=== PATIENT | female | born 1975 ===

== ENCOUNTER 2016-05-31 08:44 | Day surgery (SDC) | payer MEDICAID ==
[2016-05-31 08:44] VITALS: BMI 32.4
[2016-05-31] MEDS ORDERED: Sodium Chloride 0.9% 1,000 ML IV ONE (09:30)
[2016-05-31] MEDS ORDERED: Sodium Chloride 0.9% 1,000 ML ONE (09:38)
[2016-05-31 10:28] LABS: BASO % 0.5 % (0.0-2.0); EOS # 0.1 K/uL (0.0-0.7); HEMATOCRIT 32.4 % (34.0-47.0); LYMPH # 2.2 K/uL (1.0-4.3); LYMPH % 25.4 % (20.0-40.0); MEAN CELL VOLUME 68.8 fL (81.0-99.0); MEAN CORPUSCULAR HEMOGLOBIN 21.4 pg (27.0-31.0); MEAN CORPUSCULAR HGB CONC 31.1 g/dL (33.0-37.0); MEAN PLATELET VOLUME 7.2 fL (7.2-11.7); MONO # 0.5 K/uL (0.0-0.8); RED CELL DISTRIBUTION WIDTH 18.4 % (11.5-14.5); WHITE BLOOD COUNT 8.5 K/uL (4.8-10.8)
[2016-05-31 10:37] LABS: RBC URINE 21 /hpf (0-3); URINE BILIRUBIN NEGATIVE (NEGATIVE); URINE BLOOD 2+ (NEGATIVE); URINE COLOR Yellow (YELLOW); URINE GLUCOSE (UA) NORMAL (Normal); URINE KETONE NEGATIVE (NEGATIVE); URINE LEUKOCYTE ESTERASE NEG Leu/uL (Negative); URINE PROTEIN NEGATIVE (NEGATIVE); URINE UROBILINOGEN NORMAL mg/dL (0.2-1.0); WBC URINE 2 /hpf (0-5)
[2016-05-31 10:38] LABS: CHLORIDE 103 mmol/L (98-107); SODIUM 140 mmol/L (132-148)
[2016-05-31 10:40] LABS: GFR AFRICAN-AMERICAN > 60
[2016-05-31 10:41] LABS: ALB/GLOB RATIO 0.9 (1.0-2.1); ALKALINE PHOSPHATASE 114 U/L (38-126); ALT/SGPT 23 U/L (9-52); AST/SGOT 24 U/L (14-36); BILIRUBIN,TOTAL 0.3 mg/dL (0.2-1.3); BLOOD UREA NITROGEN 9 mg/dL (7-17); CARBON DIOXIDE 25 mmol/L (22-30); GLUCOSE,RANDOM 101 mg/dL (65-105); TOTAL PROTEIN 8.7 g/dL (6.3-8.3)
--- NOTE | 2016-05-31 10:48 | C.PDOC ---
History Of Present Illness 40-year-old female, is sent to the emergency department for evaluation of lower abdominal pain. Patient was recently diagnosed with endometriosis, and has been experiencing intermittent heavy vaginal bleeding w/ associated lower abdominal pain for the past few months. Patient denies any current pain. No nausea/ vomiting, diarrhea, fevers, chills, shortness of breath, chest pain, or any other associated symptoms. No other complaints at this time. Time Seen by Provider: 05/31/16 09:18 Chief Complaint (Nursing): Female Genitourinary History Per: Patient History/Exam Limitations: no limitations Onset/Duration Of Symptoms: Days Current Symptoms Are (Timing): Still Present Severity: Moderate Past Medical History Reviewed: Historical Data, Nursing Documentation, Vital Signs Vital Signs: Last Vital Signs Temp 96.8 F L 05/31/16 15:00 Pulse 90 05/31/16 15:00 Resp 18 05/31/16 15:00 BP 105/63 05/31/16 15:00 Pulse Ox 100 05/31/16 18:28 - Medical History PMH: Hypothyroidism - [facility] Procedures BILAT TUBAL DESTRUCT NEC (09/14/12) LOW CERVICAL (09/14/12) Family History: States: Unknown Family Hx - Social History Hx Alcohol Use: No Hx Substance Use: No Review Of Systems Except As Marked, All Systems Reviewed And Found Negative. Constitutional: Negative for: Fever, Chills Cardiovascular: Negative for: Chest Pain, Palpitations Respiratory: Negative for: Shortness of Breath Gastrointestinal: Positive for: Abdominal Pain. Negative for: Nausea, Vomiting Genitourinary: Positive for: Vaginal Bleeding. Negative for: Dysuria, Frequency , Vaginal Discharge Musculoskeletal: Negative for: Back Pain Skin: Negative for: Rash Physical Exam - Physical Exam Appears: Non-toxic, No Acute Distress Skin: Warm, Dry, No Rash Head: Atraumatic, Normacephalic Eye(s): bilateral: Normal Inspection, EOMI Nose: Normal Oral Mucosa: Moist Lips: Normal Appearing Neck: Normal ROM Chest: Symmetrical Cardiovascular: Rhythm Regular Respiratory: Normal Breath Sounds, No Accessory Muscle Use Gastrointestinal/Abdominal: Soft, No Tenderness, No Guarding, No Rebound Back: No CVA Tenderness, No Vertebral Tenderness Extremity: Normal ROM Neurological/Psych: Oriented x3, Normal Speech ED Course And Treatment - Laboratory Results Result Diagrams: 05/31/16 10:22 05/31/16 10:22 O2 Sat by Pulse Oximetry: 100 Disposition - Disposition Disposition: HOSPITALIZED Disposition Time: 14:00 Condition: STABLE - Clinical Impression Clinical Impression: Menorrhagia - Scribe Statement The provider has reviewed the documentation as recorded by the Aileen Garcia All medical record entries made by the Prestonibrigoberto were at my direction and personally dictated by me. I have reviewed the chart and agree that the record accurately reflects my personal performance of the history, physical exam, medical decision making, and the department course for this patient. I have also personally directed, reviewed, and agree with the discharge instructions and disposition.
[2016-05-31] MEDS ORDERED: Lactated Ringer's 1,000 ML IV ONE ×2 (12:40)
[2016-05-31] MEDS ORDERED: Propofol 10 mg/ml Inj (20 ML) ONE (13:12)
[2016-05-31] MEDS ORDERED: Midazolam 2 MG/2 ML VIAL ONE (13:12)
[2016-05-31] MEDS ORDERED: HYDROmorphone 0.5 mg/0.5 ml ISec IVP PRN (13:18)
[2016-05-31] MEDS ORDERED: ePHEDrine 50 mg/ml Inj ONE (13:47)
--- NOTE | 2016-05-31 14:07 | PCM.SURG1 ---
Surgeon's Initial Post Op Note - Surgeon's Notes Surgeon: Dr. Espinosa Trim Setter: None Type of Anesthesia: General LMA Anesthesia Administered By: Dr. Gruber Pre-Operative Diagnosis: 40 YO with Menorrhagia , iRREGULAR MENTRUAL CYCLE , ANEMIA Operative Findings: RV uterus 10-12 Post-Operative Diagnosis: RV uterus Operation Performed: Hysteroscopy Myosure D and C, attempted myosure Specimen/Specimens Removed: emc, ecc Estimated Blood Loss: EBL {In ML}: 10 Drains Used: No Drains Post-Op Condition: Good Date of Surgery/Procedure: 05/31/16 Time of Surgery/Procedure: 14:07
[2016-05-31 15:25] VITALS: BP 105/63; PULSE 90; RESP 18; TEMP 96.8; O2SAT 100
--- NOTE | 2016-06-07 14:30 | OP ---
PROCEDURE DATE: 05/31/2016 PREOPERATIVE DIAGNOSES: A 40-year-old female with menorrhagia, irregular menstrual period, endometri al polyp and failure of medical therapy. POSTOPERATIVE DIAGNOSES: A 40-year-old female with menorrhagia, irregular menstrual period, endometr ial polyp and failure of medical therapy. PROCEDURE: Hysteroscopy, D and C, attempted MyoSure. SURGEON: Dr. Espinosa TYPE OF ANESTHESIA: General LMA. FINDINGS: An anteverted uterus, approximately 10 week's gestation. COMPLICATIONS: None. ESTIMATED BLOOD LOSS: 5 mL. INS AND OUTS: 100 mL. SPECIMENS: EMC, ECC. DESCRIPTION OF PROCEDURE: The patient was informed of the risk factors, benefits, and alternatives o f procedure. Risk factors included infection, bleeding, damage to surrounding organs and tissue, com plication from anesthesia and possible . After informed consent was obtained, she was then take n to the operating room, prepped and draped in normal sterile fashion, placed in dorsal lithotomy pos ition. A weighted speculum was placed in the vagina. The anterior lip of the cervix was grasped wit h a single-tooth tenaculum. Uterus was gently sounded to approximately 10 cm. Upon complete uterine dilation, the hysteroscope was then placed. Attempted MyoSure was performed. A complete surveillan ce was noted. There were areas of atrophic endometrium. In that particular instance, the scope was then removed. EMC and ECC were performed using curetting. Excellent hemostasis was noted. That spe cimen was submitted to pathology. Upon completion, all instruments were removed from the vagina. In struments and lap count were correct x 2. The patient was then taken to the recovery room in stable condition and instructed to follow up in the office in approximately 2 weeks. Nancy Espinosa MD cc: [id number] TT: 06/07/2016 14:30:07 en
== END 2016-05-31 15:27 | disposition home or self-care (01) ==
LOC: C.SDS 08:44 → C.ER 08:44 → C.SDS 11:08
PROVIDERS: ATTEND Obstetrics & Gynecology
DX: N92.1 Excessive and frequent menstruation with irregular cycle (principal); N80.9 Endometriosis, unspecified; D64.9 Anemia, unspecified; E03.9 Hypothyroidism, unspecified; Z98.51 Tubal ligation status; N84.0 Polyp of corpus uteri; N85.4 Malposition of uterus; N85.8 Other specified noninflammatory disorders of uterus; N71.1 Chronic inflammatory disease of uterus
CPT/HCPCS: 58558; 80053; 81001; 84703; 85025; 85610; 85730; 86850; 86900; 88305; 99285; J2250; J2704; J3010; J7040; J7120